=== PATIENT | female | born 1960 | race Two or more races ===

== ENCOUNTER 2020-06-06 23:16 | Emergency (ER) | payer BC ==
[~2020-06-06] VITALS: Ht 160 cm; Wt 85.9 kg
[2020-06-06 23:19] VITALS: BP 159/100
[2020-06-06] MEDS ORDERED: CLOTRIMAZOLE CRM 1%, 15GM TP STA (23:55)
--- NOTE | 2020-06-07 00:34 | NUR ---
ointment applied to right lower abdominal fold rash area. discharge instructions reviewed with patient. all questions answered to patient's satisfaction. ointment sent home with patient as patient is not from the area and is just driving through. steady gait to lobby. all personal belongings with patient on departure. no IV placed during this ER visit
== END 2020-06-07 00:37 | disposition home or self-care (01) ==
LOC: ED 06-07 00:24
DX: B35.4 Tinea corporis (principal)
CPT/HCPCS: 99283